=== PATIENT | male | born 1960 | race Caucasian/White ===

== ENCOUNTER 2021-09-12 16:30 | Outpatient (CLI) | payer BC, SELFPAY ==
--- NOTE | 2021-09-12 16:48 | XR_ITS ---
WS: [id number] Exam: XR foot RT min 3V* [id number] Date/Time of Exam: 09/12/2021 4:48 PM Reason For Exam: E11.621 - Type 2 diabetes mellitus with foot ulcer There is been amputation of the foot with only the calcaneus, talus and navicular remaining. No obvio us acute fracture. No acute bone destruction seen. There is soft tissue edema of the amputation stump . XR/XR foot RT min 3V* [id number] IMPRESSION: 1. Amputation of the mid and forefoot as detailed above. The remainder of the h indfoot shows no obvious fracture or bone destruction. Soft tissue edema of the amputation stump.
== END 2021-09-12 16:31 | disposition home or self-care (01) ==
LOC: RAD 16:35
PROVIDERS: PCP Family Medicine; Visit Provider Nurse Practitioner Family
DX: E11.621 Type 2 diabetes mellitus with foot ulcer (principal); L97.509 Non-pressure chronic ulcer of other part of unspecified foot with unspecified severity
CPT/HCPCS: 73630

== ENCOUNTER → 2021-09-17 16:38 | Outpatient (BNVA) | payer BC, SELFPAY | PROVIDERS: PCP Family Medicine; Visit Provider Thoracic Surgery (Cardiothoracic Vascular Surgery) | DX: E11.621 Type 2 diabetes mellitus with foot ulcer (principal); L97.509 Non-pressure chronic ulcer of other part of unspecified foot with unspecified severity | CPT/HCPCS: 87070; 87077; 87176; 87186; 87205 ==